=== PATIENT | female | born 1980 | race Caucasian/White ===

== ENCOUNTER 2018-07-23 04:20 | Emergency (ER) | payer MEDICAID, MEDICARE ==
[~2018-07-23] VITALS: Ht 152.4 cm; Wt 64.9 kg
--- NOTE | 2018-07-23 04:45 | NUR ---
FIRST CONTACT WITH PT. PT C/O ABDOMINAL PAIN WITH DIARRHEA AND NAUSEA SINCE 0130 THIS MORNING. PT CONCERNED SHE HAS FOOD POISOINING AGAIN. PT'S AOX4. RESPS EVEN AND UNLABORED. BP/SPO2 MONITORS IN PLACE. CALL LIGHT WITHIN REACH. EDMD AT BEDSIDE TO ASSESS AT THIS TIME.
[2018-07-23] MEDS ORDERED: ONDANSETRON ODT 4 MG ONE (04:48)
[2018-07-23] MEDS ORDERED: ONDANSETRON ODT 4 MG PO ONE (05:00)
--- NOTE | 2018-07-23 05:00 | NUR ---
PT MEDICATED PER EMAR. PT TOLERATED WELL. PT REQUESTING WATER. EDMD NOTIFIED.
--- NOTE | 2018-07-23 05:09 | NUR ---
PT PROVIDED WATER. PT REFUSED TO PROVIDE URINE SAMPLE AT THIS TIME. EDMD NOTIFIED.
[2018-07-23 05:37] LABS: BASOPHILS % (AUTO) 0 % (0-1); EOSINOPHILS % (AUTO) 0 % (1-7); LYMPHOCYTES # (AUTO) 0.21 x10^3/uL (1-3.4); LYMPHOCYTES % (AUTO) 3 % (22-44); MD NO; MEAN CORPUSCULAR HEMOGLOBIN 30.2 pg (27.0-34.8); MEAN CORPUSCULAR HGB CONC 34.1 g/dL (32.4-35.8); MEAN CORPUSCULAR VOLUME 88.5 fL (80-100); MEAN PLATELET VOLUME 8.7 fL (7.4-10.4); MONOCYTES # (AUTO) 0.23 x10^3/uL (0.2-0.8); MONOCYTES % (AUTO) 3 % (2-9); NEUTROPHILS # (AUTO) 7.26 x10^3/uL (1.8-6.8); NEUTROPHILS % (AUTO) 94 % (42-75); PLATELET COUNT 190 x10^3/uL (130-400); RED BLOOD COUNT 4.94 x10^6/uL (3.82-5.3); RED CELL DISTRIBUTION WIDTH 13.1 % (9.6-15.2)
[2018-07-23 05:44] LABS: ALBUMIN 4.2 g/dL (3.4-5.0); ANION GAP 7 mmol/L (5-15); CALCIUM 8.7 mg/dL (8.5-10.1); CHLORIDE 109 mmol/L (98-107)
[2018-07-23 05:51] LABS: ALANINE AMINOTRANSFERASE 51 U/L (12-78); ALKALINE PHOSPHATASE 152 U/L (45-117); BILIRUBIN,TOTAL 0.7 mg/dL (0.2-1.0); CREATININE 0.76 mg/dL (0.55-1.02); TOTAL PROTEIN 8.6 g/dL (6.4-8.2)
--- NOTE | 2018-07-23 05:53 | NUR ---
PT SLEEPING IN GURNEY. RESPS EVEN AND UNLABORED. PT'S MOTHER AT BEDSIDE. BP/SPO2 MONITORS IN PLACE. CALL LIGHT WITHIN REACH.
--- NOTE | 2018-07-23 06:10 | NUR ---
PT IN XRAY NOW.
--- NOTE | 2018-07-23 06:28 | NUR ---
PT BACK TO ROOM FROM XRAY.
--- NOTE | 2018-07-23 06:40 | NUR ---
PT WAS NOT ABLE TO PROVIDE URINE SAMPLE AT THIS TIME. EDMD ORDERED STRAIGHT CATH.
--- NOTE | 2018-07-23 06:46 | NUR ---
PT REFUSED STRAIGHT CATH AT THIS TIME. PT IS CRYING. WATER AT BEDSIDE.
--- NOTE | 2018-07-23 06:54 | NUR ---
REPORT GIVEN TO LISBETH AUSTIN.
--- NOTE | 2018-07-23 06:55 | NUR ---
received report from Kym. pt laying on r[address]ell hodgson, refusing to cooperate with staff (sit upright, go to BR for UA sample, drink PO fluids), awaiting return of caregiver, comfort measures provided, call light within reach. Addendum: 07/23/18 at 0659 by MADDIE received report from Kym. pt laying on russell N[place], refusing to cooperate with staff (sit upright, go to BR for UA sample, drink PO fluids)- PA aware, awaiting return of caregiver, comfort measures provided, call light within reach.
--- NOTE | 2018-07-23 08:01 | NUR ---
pt laying on gurney with eyes closed, responds to staff with verbal stimuli, pt continues to refuse BR & PO fluids- ERP aware, NAD, comfort measures provided, awaiting arrival of mom, call light within reach.
--- NOTE | 2018-07-23 08:15 | NUR ---
pt mom & caregiver arrived at BS.
[2018-07-23 09:05] VITALS: BP 113/80
[2018-07-23] MEDS ORDERED: OMNIPAQUE 350 MG/ML, 100ML BOTTLE ONE (09:05)
--- NOTE | 2018-07-23 09:05 | NUR ---
pt continues laying on gurney with eyes closed, able to doze off, responds to staff with verbal stimuli, pt continues to refuse BR & PO fluids- ERP aware, NAD, no needs at this time, family at BS, call light within reach.
--- NOTE | 2018-07-23 09:39 | NUR ---
Patient Caregivers given discharge instructions and Rx, they have confirmed that they understand the instructions. Patient ambulatory but refused to ambulate to DC desk, WC provided per family request.
== END 2018-07-23 09:41 | disposition home or self-care (01) ==
LOC: ED 05:12
DX: K52.9 Noninfective gastroenteritis and colitis, unspecified (principal)
CPT/HCPCS: 36415; 74021; 74177; 80053; 83690; 84703; 85025; 99284; Q0162; Q9967